=== PATIENT | female | born 1975 | race African-American/Black ===

== ENCOUNTER 2023-05-17 18:57 | Emergency (ER) | payer SELFPAY ==
[~2023-05-17] VITALS: Ht 162.6 cm; Wt 78.0 kg
[2023-05-17] MEDS ORDERED: DIPHENHYDRAMINE 50MG/ML VIAL IM STA (19:06)
[2023-05-17] MEDS ORDERED: HALOPERIDOL LACTATE 5MG/ML VIAL IM STA (19:06)
[2023-05-17] MEDS ORDERED: LORAZEPAM 2MG/ML INJ IM STA (19:06)
[2023-05-17 21:21] LABS: BASOPHILS % 0.4 % (0.0-2.0); DIFFERENTIAL COMMENT 0; EOSINOPHILS % 0.3 % (0.0-5.0); HEMATOCRIT. 32.5 % (36.0-48.0); HEMOGLOBIN. 9.9 g/dL (12.0-16.0); LYMPHOCYTES % 11.6 % (20.0-50.0); MEAN CORPUSCULAR HEMOGLOBIN 22.4 pg (28.0-32.0); MEAN CORPUSCULAR HGB CONC 30.5 g/dL (31.0-37.0); MEAN CORPUSCULAR VOLUME 73.5 fL (81.0-99.0); MEAN PLATELET VOLUME 8.3 fl (7.4-10.4); MONOCYTES % 8.4 % (2.0-8.0); NEUTROPHILS % 79.3 % (40.0-76.0); PLATELET 348 x1000/uL (130-400); RED BLOOD CELL COUNT 4.42 mill/uL (4.2-5.4); WHITE BLOOD COUNT 15.5 x1000/uL (4.5-11.0)
[2023-05-17 21:33] LABS: HCG SCREEN NEGATIVE
[2023-05-17 21:37] LABS: ACETAMINOPHEN < 2 ug/mL (10-30); ALANINE AMINOTRANSFERASE 10 IU/L (10-49); ALBUMIN 4.4 g/dL (3.2-4.8); ASPARTATE AMINOTRANSFERASE 21 IU/L (<34); BILIRUBIN TOTAL 0.9 mg/dL (0.1-1.0); CALCIUM 9.3 mg/dL (8.7-10.4); CARBON DIOXIDE 18 mEq/L (21-32); CHLORIDE 100 mEq/L (98-107); CREATININE 0.7 mg/dL (0.6-1.0); GLUCOSE 188 mg/dL (70-105); POTASSIUM 3.9 mEq/L (3.5-5.1); PROTEIN TOTAL 8.7 g/dL (6.0-8.3); SODIUM 134 mEq/L (136-145); THYROID STIMULATING HORMONE 2.81 uIU/mL (0.55-4.78); UREA NITROGEN BLOOD 15 mg/dL (9-23)
[2023-05-17 21:51] LABS: ETHANOL BLOOD < 10 mg/dL (<10); TROPONIN I HIGH SENSITIVITY < 4 ng/L (3.0-34)
[2023-05-17 21:54] VITALS: O2SAT 97
[2023-05-18 01:49] VITALS: BP 146/89; PULSE 101; RESP 18; TEMP 98.6
== END 2023-05-18 10:15 | disposition home or self-care (01) ==
LOC: ER 18:57 → EDBD 18:57 → ER 05-18 10:15
DX: R45.6 Violent behavior (principal); R41.82 Altered mental status, unspecified
CPT/HCPCS: 80053; 80307; 80329; 80320; 84703; 84443; 85025; 84484; 36415; 70450; 96372; 99291; J1200; J1630; J2060; Z7610; G0480

== ENCOUNTER 2023-07-22 15:56 | Emergency (ER) | payer MEDICAID ==
[~2023-07-22] VITALS: Ht 162.6 cm; Wt 70.0 kg
== END 2023-07-22 16:17 | disposition left against medical advice (07) ==
LOC: ER 16:13
DX: R53.1 Weakness (principal); Z53.21 Procedure and treatment not carried out due to patient leaving prior to being seen by health care provider
CPT/HCPCS: 99281

== ENCOUNTER 2024-05-11 17:00 | Emergency (ER) | payer MEDICAID ==
[~2024-05-11] VITALS: Ht 162.6 cm; Wt 75.0 kg
[2024-05-11 17:02] VITALS: BP 157/80; PULSE 97; RESP 18; TEMP 98.3; O2SAT 99
== END 2024-05-11 17:45 | disposition left against medical advice (07) ==
LOC: ER 17:00
DX: R05.9 Cough, unspecified (principal); F31.9 Bipolar disorder, unspecified; E11.9 Type 2 diabetes mellitus without complications; Z53.21 Procedure and treatment not carried out due to patient leaving prior to being seen by health care provider